=== PATIENT | male | born 1980 | race Hispanic/Latino ===

== ENCOUNTER 2020-07-26 14:29 | Outpatient (CLI) | payer BC ==
[~2020-07-26 14:29] MED LIST: Magnevist 469MG/ML 20 ML VIAL ONE
--- NOTE | 2020-07-26 17:01 | MRI ---
BRAIN MRI WITH AND WITHOUT CONTRAST: 07/26/20 HISTORY: Cerebral edema. COMPARISON: 04/07/20 CORRELATION: Head CT 04/12/20. FINDINGS: There are small amounts of hemorrhage, possibly microscopic hemosiderin deposition on the axial gradi ent echo sequence. Hemorrhage has developed since the previous exam. With regards to the cerebrum, no parenchymal mass, mass effect or midline shift. Brain volume is age appropriate. Cortical ahn-white matter differentiation is preserved. No significant T2 or FLAIR whit e matter hyperintensities. No hydrocephalus. Central arterial flow voids are maintained. Absence restricted diffusion. Mild mucosal thickening of the paranasal sinuses. There is mucous retention cysts in bilateral maxillary sinuses. Otherwise, audrey quate aeration of the paranasal sinuses and mastoid air cells. No abnormal enhancement of the cerebru m. With regards to the left cerebellar hemisphere, there does appear to be minimal volume loss. There is minimal intrinsic T1 hyperintensity suggesting laminar necrosis. No significant mass effect or sulca l effacement. Previously noted edema involving the left cerebellum has essentially resolved. There is no mass effect upon the fourth ventricle. Postcontrast images do not demonstrate any abnormal enhanc ement. 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 Previously noted edema and mass effect have effectively resolved. Currently, there is no edema. There is minimal volume loss of the left cerebell um. No evidence of restricted diffusion. POS: AH
== END 2020-07-26 14:30 | disposition home or self-care (01) ==
LOC: BICMRI 14:29
PROVIDERS: ATTEND Surgery
DX: G93.6 Cerebral edema (principal); I67.89 Other cerebrovascular disease
CPT/HCPCS: 70553; A9579

== ENCOUNTER 2020-10-08 00:33 | Emergency (ER) | payer BC ==
[2020-10-08] MEDS ORDERED: Promethazine HCl 25 MG/ML VIAL ONE (00:46)
[2020-10-08] MEDS ORDERED: Dicyclomine 20 MG TAB ONE (00:53)
[2020-10-08] MEDS ORDERED: Morphine 4 MG/ML VIAL ONE (00:53)
[2020-10-08 01:09] LABS: #Basophils 0.1 thou/uL (0.0-0.2); #Eosinphils 0.2 thou/uL (0.0-0.7); #Lymphocytes 3.2 thou/uL (1.20-3.40); #Monocytes 0.9 thou/uL (0.11-0.59); #Neutrophils 10.3 thou/uL (1.40-6.50); %Basophils 0.6 % (0.0-1.0); %Eosinophils 1.4 % (0.0-10.0); %Lymphocytes 21.9 % (21.0-51.0); %Monocytes 6.1 % (0.0-10.0); Hemoglobin 15.4 g/dL (14.0-18.0); Mean Corpuscular HGB CONC 33.3 g/dL (32.0-36.0); Mean Corpuscular Hemoglobin 27.6 pg (27.0-31.0); Mean Corpuscular Volume 82.9 fL (78.0-98.0); Mean Platelet Volume 8.9 fL (7.4-10.4); Platelet Count 270 thou/uL (130-400); RBC Distribution Width 12.3 % (11.5-14.5); Red Blood Cell (RBC) Count 5.59 mill/uL (4.70-6.10); White Blood Cell (WBC) Count 14.7 thou/uL (4.8-10.8)
[2020-10-08 01:17] LABS: ALT (SGPT) 35 U/L (8-55); AST (SGOT) 30 U/L (5-34); Albumin 4.9 g/dL (3.5-5.0); Alkaline Phosphatase 77 U/L (40-110); Anion Gap 17 mmol/L (10-20); BUN (Urea Nitrogen) 17 mg/dL (8.9-20.6); Bilirubin, Total 0.6 mg/dL (0.2-1.2); Calc. Creatinine Clearance 0 mL/min (70-130); Calcium 10.6 mg/dL (7.8-10.44); Carbon Dioxide 23 mmol/L (22-29); Chloride 103 mmol/L (98-107); Globulin 3.9 g/dL (2.4-3.5); Glucose 207 mg/dL (70-105); Potassium 3.2 mmol/L (3.5-5.1); Protein, Total 8.8 g/dL (6.0-8.3); Sodium 140 mmol/L (136-145)
[2020-10-08] MEDS ORDERED: Iopamidol-370 76% 500 ML 1 ML ONE (14:28)
== END 2020-10-08 02:40 | disposition home or self-care (01) ==
LOC: ERS 00:33
DX: K52.9 Noninfective gastroenteritis and colitis, unspecified (principal); U07.1 COVID-19; R11.2 Nausea with vomiting, unspecified
CPT/HCPCS: 74177; 80053; 83690; 85025; 96372; 96374; 96375; J0500; J2270; J2550; Q9967